=== PATIENT | male | born 1930 | race Caucasian/White ===

== ENCOUNTER 2017-05-21 05:16 | Day surgery (SDC) | payer OTHER ==
[~2017-05-21] VITALS: Ht 170.2 cm; Wt 103.4 kg
--- NOTE | ~2017-05-21 | O ---
[facility] [place] [address] OPERATIVE REPORT Name: SHARON NAILS Room #: [place] [facility] [place]#: [id number] Admission: 05/21/17 Attend Phys: Steven Nuñez MD Discharge: 05/21/17 Date of : [birth year] Report #: [id number] THIS REPORT FOR: //name// CC: Dr. Car Nuñez DATE OF SERVICE: 05/21/2017 CONFERENCE CONCIERGE: None. PREOPERATIVE DIAGNOSIS: Bilateral lower lid entropion. POSTOPERATIVE DIAGNOSIS: Bilateral lower lid entropion. OPERATION PERFORMED: Bilateral lower lid entropion repair. ANESTHESIA: Local with IV sedation. COMPLICATIONS: None. INDICATIONS FOR PROCEDURE: This patient has bilateral lower lid entropion with chronic irritation and discharge. The current procedures are being undertaken in order to improve the patient's level of comfort and visual function. Informed consent was obtained to include but not limited to the loss of vision, bleeding, infection, scarring, failure to improve the problem and need for further surgery. DESCRIPTION OF OPERATION: The patient was taken to the operating room, where 2% Xylocaine with epinephrine mixed with equal parts of 0.75% Marcaine with Wydase was administered transcutaneously and transconjunctivally to each lower lid and lateral canthal area. The patient was then prepped and draped in the usual sterile fashion. A Prashant clamp was used to clamp the left lateral canthus, following which a sharp canthotomy and cantholysis were performed. Hemostasis was achieved with a monopolar cautery, as it was throughout the case. A tarsal strip was prepared laterally, removing the lash bearing portion of the redundant lid margin and the redundant tarsal plate. A transconjunctival dissection was then undertaken just inferior to the lower border of the tarsal plate. The lower lid retractors were disinserted from the inferior border of the tarsal plate. The lower lid retractors were then advanced and reattached to the anterior surface of the tarsal plate with mattress 5-0 chromic sutures passed transconjunctivally and secured in the infraciliary margin. The tarsal strip was then secured laterally with 2 interrupted 5-0 Prolene sutures. The subcutaneous structures and the skin were then closed with multiple interrupted [address] [address] OPERATIVE REPORT Name: SHARON NAILS Room #: [place] [facility].R.#: [id number] Admission: 05/21/17 Attend Phys: Steven Nuñez MD Discharge: 05/21/17 Date of : [birth year] Report #: [id number] 6-0 plain gut sutures so the lateral canthal angle was sharply reformed. The wounds were then cleaned and dressed with ophthalmic antibiotic ointment. The patient was then transported to the recovery area, having tolerated the procedure well with no anesthetic or operative complications being noted. <ELECTRONICALLY SIGNED> By: Steven Nuñez MD 05/25/17 0623 [id number] MD jake Galaviz
[~2017-05-21 05:16] MED LIST: ALDACTONE25 MG PO; ALLOPURINOL 30300 M1 PO; AZELASTINE137 MCG/0. NASAL; CARDURA4 MG PO; CELEXA20 MG PO; COUMADIN 2.5MG2.5 M1 PO; COUMADIN 5 MG TA5 M1 PO; DIABETIC T100 MG/5 M PO; DIGOXIN125 MCG PO; DOXYCYCLINE 10100 MG PO; GLUCOTROL5 MG PO; HYDROCODON-ACE1 EAC8 PO; JANUVIA100 MG PO; LASIX 40 MG TAB40 M2 PO; LOTEMAX5 ML OPHTHALMIC; MAGNESIUM400 MG PO; ROCALTROL0.5 MCG PO; TYLENOL325 MG PO; VITAMIN D35000 UNI1 PO; XALATAN2.5 ML OPHTHALMIC; ZOCOR20 MG PO
[2017-05-21 11:00] VITALS: BP 126/60
[2017-05-21 11:01] LABS: INR 1.2; PROTIME 11.9 Seconds (9.3-11.4)
== END 2017-05-21 14:10 | disposition home or self-care (01) ==
LOC: TBA 05:16 → OR 05:16 → TBA 05:19 → OR 10:13
PROVIDERS: Anesthesiology
DX: H02.005 Unspecified entropion of left lower eyelid (principal); H02.002 Unspecified entropion of right lower eyelid; I11.0 Hypertensive heart disease with heart failure; I50.9 Heart failure, unspecified; E11.9 Type 2 diabetes mellitus without complications; I48.91 Unspecified atrial fibrillation; J43.8 Other emphysema; E78.5 Hyperlipidemia, unspecified; K21.9 Gastro-esophageal reflux disease without esophagitis; Z85.828 Personal history of other malignant neoplasm of skin; Z90.49 Acquired absence of other specified parts of digestive tract; Z87.891 Personal history of nicotine dependence; Z98.890 Other specified postprocedural states; Z98.41 Cataract extraction status, right eye; Z98.42 Cataract extraction status, left eye; Z79.899 Other long term (current) drug therapy; Z79.891 Long term (current) use of opiate analgesic; Z79.01 Long term (current) use of anticoagulants
CPT/HCPCS: 50010; 50101; 50386; 50398; 51636; 56527; 56531; 62110; 62850; 70005